=== PATIENT | male | born 1980 | race Two or more races ===

== ENCOUNTER 2023-08-02 12:53 | Emergency (ER) | payer OTHER ==
--- NOTE | 2023-08-02 13:02 | ED ---
URI HPI - General Source: patient, RN notes reviewed Mode of arrival: ambulatory Limitations: no limitations <Tracy Cole - Last Filed: 08/02/23 13:00> - General Source: RN notes reviewed, old records reviewed Mode of arrival: ambulatory Limitations: no limitations <Nilson Tee - Last Filed: 08/11/23 18:38> - General Chief Complaint: Upper Respiratory Infection Stated Complaint: SOB, cough Time Seen by Provider: 08/02/23 13:00 - History of Present Illness Initial Comments: This is a 42 year old male who presents to the emergency department for a sore throat, coughing, congestion, and shortness of breath. (Tracy Cole) This is a 42-year-old male to ER for cough congestion sore throat, multiple sick contacts recently. No travel history of, no significant medical history takes no medications non-smoker. No current chest pain no leg pain or swelling (Nilson Tee) - Related Data Previous Rx's Medication Instructions Recorded Amoxic-Pot Clav 875-125Mg 1 tab PO Q12HR #20 tablet 08/02/23 [Augmentin 875-125] Allergies Allergy/AdvReac Type Severity Reaction Status Date / Time No Known Allergies Allergy Verified 08/02/23 13:07 Review of Systems ROS Other: All systems not noted in ROS Statement are negative. <Tracy Cole - Last Filed: 08/02/23 13:00> ROS Other: All systems not noted in ROS Statement are negative. <Nilson Tee - Last Filed: 08/11/23 18:38> ROS Statement: Those systems with pertinent positive or pertinent negative responses have been documented in the HPI. General Exam <Tracy Cole - Last Filed: 08/02/23 13:00> General appearance: alert, in no apparent distress Head exam: Present: atraumatic, normocephalic, normal inspection Eye exam: Present: normal appearance, PERRL, EOMI. Absent: scleral icterus, conjunctival injection, periorbital swelling ENT exam: Present: normal exam, mucous membranes moist Neck exam: Present: normal inspection. Absent: tenderness, meningismus, lymphadenopathy Respiratory exam: Present: normal lung sounds bilaterally. Absent: respiratory distress, wheezes, rales, rhonchi, stridor Cardiovascular Exam: Present: regular rate, normal rhythm, normal heart sounds. Absent: systolic murmur, diastolic murmur, rubs, gallop, clicks GI/Abdominal exam: Present: soft, normal bowel sounds. Absent: distended, tenderness, guarding, rebound, rigid Extremities exam: Present: normal inspection, full ROM, normal capillary refill. Absent: tenderness, pedal edema, joint swelling, calf tenderness Back exam: Present: normal inspection Neurological exam: Present: alert, oriented X3, CN II-XII intact Psychiatric exam: Present: normal affect, normal mood Skin exam: Present: warm, dry, intact, normal color. Absent: rash <Nilson Tee - Last Filed: 08/11/23 18:38> - General Exam Comments Initial Comments: Visual Physical Exam Vital signs reviewed General: Well-appearing, nontoxic, no acute distress. Head: Normocephalic, atraumatic Eyes: PERRLA, EOMI ENT: Airway patent Chest: Nonlabored breathing Skin: No visual rash, normal skin tone Neuro: Alert and oriented 3 Musculoskeletal: No gross abnormalities (Tracy Cole) Course <Nilson Tee - Last Filed: 08/11/23 18:38> Vital Signs 08/02/23 13:05 Temperature 98.5 F Pulse Rate 72 Respiratory 20 Rate Blood Pressure 117/59 O2 Sat by Pulse 96 Oximetry - Reevaluation(s) Reevaluation #1: Records reviewed (Nilson Tee) Reevaluation #2: Patient symptoms unchanged (Nilson Tee) Reevaluation #3: Patient informed of results and questions answered (Nilson Tee) Reevaluation #4: Was pt. sent in by a medical professional or institution (, PA, FRONT DESK ASSOCIATE, urgent care, hospital, or halfway...) When possible be specific @ -no Did you speak to anyone other than the patient for history (EMS, parent, family, police, friend...)? What history was obtained from this source @ -no Did you review nursing and triage notes (agree or disagree)? Why? @ -agree Are old charts reviewed (outside hosp., previous admission, EMS record, old EKG, old radiological studies, urgent care reports/EKG's, halfway records)? Report findings @ -yes Differential Diagnosis (chest pain, altered mental status, abdominal pain women, abdominal pain men, vaginal bleeding, weakness, fever, dyspnea, syncope, headache, dizziness, GI bleed, back pain, seizure, CVA, palpatations, mental health, musculoskeletal)? @ -prior EKG interpreted by me (3pts min.). @ -no X-rays interpreted by me (1pt min.). @ -yes positive for pneumonia se CT interpreted by me (1pt min.). @ -no U/S interpreted by me (1pt. min.). @ -no What testing was considered but not performed or refused? (CT, X-rays, U/S, labs)? Why? @ -none What meds were considered but not given or refused? Why? @ -none Did you discuss the management of the patient with other professionals (professionals i.e. , PA, FRONT DESK ASSOCIATE, lab, RT, psych nurse, social media designer, equipment service engineer, teacher, founder chairman and chief creative officer, case resource manager)? Give summary @ -no Was smoking cessation discussed for >3mins.? @ -no Was critical care preformed (if so, how long)? @ -no Were there social determinants of health that impacted care today? How? (Homelessness, low income, unemployed, alcoholism, drug addiction, transportation, low edu. Level, literacy, decrease access to med. care, assisted, rehab)? @ -none Was there de-escalation of care discussed even if they declined (Discuss DNR or withdrawal of care, Hospice)? DNR status @ -no What co-morbidities impacted this encounter? (DM, HTN, Smoking, COPD, CAD, Cancer, CVA, ARF, Chemo, Hep., AIDS, mental health diagnosis, sleep apnea, morbid obesity)? @ -none Was patient admitted / discharged? Hospital course, mention meds given and route, prescriptions, significant lab abnormalities, going to OR and other pertinent info. @ - 42 male to ER for evaluation of upper respiratory infection cough congestion shortness of breath. Positive pneumonia, patient placed on antibiotics and can be discharged home Discharge Undiagnosed new problem with uncertain prognosis? @ -no Drug Therapy requiring intensive monitoring for toxicity (Heparin, Nitro, Insulin, Cardizem)? @ -no Were any procedures done? @ -no Diagnosis/symptom? @ -Pneumonia Acute, or Chronic, or Acute on Chronic? @ -Acute Uncomplicated (without systemic symptoms) or Complicated (systemic symptoms)? @ -Complicated Side effects of treatment? @ -no Exacerbation, Progression, or Severe Exacerbation? @ -exacerbation Poses a threat to life or bodily function? How? (Chest pain, [place], [place], pneumonia, PE, COPD, DKA, ARF, appy, cholecystitis, CVA, Diverticulitis, Homicidal, Suicidal, threat to staff... and all critical care pts) @ -yes (Nilson Tee) Reevaluation #5: Differential Dyspnea: Coronary syndrome, arrhythmia, tamponade, asthma, COPD, pulmonary embolism, pneumonia, pneumothorax, pulmonary effusion, anaphylaxis, diabetic ketoacidosis, flailed chest, pulmonary contusion, diaphragmatic rupture, anemia, neuromuscular, this is not meant to be an all-inclusive list. (Nilson Tee) Medical Decision Making <Tracy Cole - Last Filed: 08/02/23 13:00> - Radiology Data Radiology results: report reviewed (Chest x-ray is for pneumonia), image reviewed <Nilson Tee - Last Filed: 08/11/23 18:38> - Medical Decision Making I performed the QuickNote portion of this chart. Signed Tracy Cole PA-C. (Tracy Cole) 42 male to ER for evaluation of upper respiratory infection cough congestion shortness of breath. Positive pneumonia, patient placed on antibiotics and can be discharged home (Nilson Tee) - Lab Data Lab Results 08/02/23 Range/Units 13:10 Influenza Type A (PCR) Not Detected (Not Detectd) Influenza Type B (PCR) Not Detected (Not Detectd) RSV (PCR) Not Detected (Not Detectd) SARS-CoV-2 (PCR) Not Detected (Not Detectd) Disposition <Tracy Cole - Last Filed: 08/02/23 13:00> Is patient prescribed a controlled substance at d/c from ED?: No Time of Disposition: 15:25 <Nilson Tee - Last Filed: 08/11/23 18:38> Clinical Impression: Upper respiratory tract infection, Acute upper respiratory infection, Pneumonia Disposition: HOME SELF-CARE Condition: Good Instructions (If sedation given, give patient instructions): Upper Respiratory Infection (ED), Community Acquired Pneumonia (ED) Prescriptions: Amoxic-Pot Clav 875-125Mg [Augmentin 875-125] 1 tab PO Q12HR #20 tablet Referrals: None,Stated [Primary Care Provider] - 1-2 days
--- NOTE | 2023-08-02 13:29 | XR ---
EXAMINATION TYPE: XR chest 2V DATE OF EXAM: 08/02/2023 COMPARISON: NONE HISTORY: Productive cough. TECHNIQUE: Frontal and lateral views of the chest are obtained. FINDINGS: There is no focal air space opacity, pleural effusion, or pneumothorax seen. The cardiac silhouette size is within normal limits. The osseous structures are intact. IMPRESSION: No acute cardiopulmonary process.
[2023-08-02 13:33] VITALS: BP 117/59; PULSE 72; RESP 20; TEMP 98.5
[2023-08-02] MEDS: AMOXIC-POT CLAV 875-125MG 1 EACH TAB PO STA (16:06)
[2023-08-02] MEDS: dexAMETHasone 2 MG TAB PO STA (16:06)
== END 2023-08-02 16:09 | disposition home or self-care (01) ==
LOC: EC 12:53
DX: J18.9 Pneumonia, unspecified organism (principal); J06.9 Acute upper respiratory infection, unspecified; Z20.822 Contact with and (suspected) exposure to COVID-19
CPT/HCPCS: 87636; 71046; 99285; J8540